=== PATIENT | female | born 1965 | race Two or more races ===

== ENCOUNTER 2024-02-10 06:14 | Emergency (ER) | payer MEDICAID, OTHER ==
[~2024-02-10] VITALS: Ht 157.5 cm; Wt 96.0 kg
[2024-02-10 08:13] LABS: Urine Bacteria None Seen /hpf (None Seen); Urine WBC None Seen /hpf (0 - 5)
[2024-02-10 08:35] LABS: Urine Blood TRACE /uL (Negative); Urine Clarity Clear (Clear); Urine Color Colorless (Yellow); Urine Protein, UAD Negative (Negative); Urine Urobilinogen Normal (Negative)
[2024-02-10 09:00] VITALS: BP 184/76; PULSE 60; RESP 18; TEMP 98.5; O2SAT 96
[2024-02-10 09:08] LABS: Vaginal Bacteria Few; Vaginal Clue Cells Few; Vaginal Epithelial Cells Moderate; Vaginal Trichomonas Not Present
[2024-02-10] MEDS ORDERED: CEPH500C PO (09:19)
[2024-02-10] MEDS ORDERED: KETO2CRE4 TOP (09:19)
== END 2024-02-10 09:22 | disposition home or self-care (01) ==
LOC: ER 06:14
DX: B35.6 Tinea cruris (principal); E66.01 Morbid (severe) obesity due to excess calories; I10 Essential (primary) hypertension; Z68.38 Body mass index [BMI] 38.0-38.9, adult
CPT/HCPCS: 81001; 87210